=== PATIENT | female | born 1970 | race Caucasian/White ===

== ENCOUNTER 2018-09-30 14:30 | Emergency (ER) | payer BC, OTHER ==
[~2018-09-30] VITALS: Ht 152.4 cm; Wt 67.3 kg
[~2018-09-30 14:30] MED LIST: VITAMINS
[2018-09-30 14:47] VITALS: BP 161/96; PULSE 76; RESP 18; Ht 152.4 cm; Wt 67.3 kg
--- NOTE | 2018-09-30 16:47 | ERD ---
ER Documentation Chief Complaint Chief Complaint head feels heavy, body feels weak since last night, denies any pain HPI 48-year-old female past medical history of small kidney on the left side presents for feeling of heaviness in her head and body weakness x2 days. Patient states that she does not have pain however she feels a heaviness in her head. She states that she has been working a lot and has had increased stress due to her being on dialysis. She is not getting enough sleep. She denies fevers or chills. Denies chest pain or shortness of breath. Denies nausea, vomiting, diarrhea. Denies abdominal pain. Patient states that she is eating okay. No other modifying factors noted. No treatments tried at home. ROS All systems reviewed and are negative except as per history of present illness. Medications Home Meds Reported Medications [Vitamins] No Conflict Check 02/19/11 Allergies Allergies: Coded Allergies: No Known Drug Allergies (Verified Allergy, 02/19/11) PMhx/Soc History of Surgery: No Anesthesia Reaction: No Hx Neurological Disorder: No Hx Respiratory Disorders: No Hx Cardiac Disorders: No Hx Psychiatric Problems: No Hx Miscellaneous Medical Probl: No Hx Alcohol Use: No Hx Substance Use: No Hx Tobacco Use: No Smoking Status: Never smoker Physical Exam Vitals Vital Signs Date Temp Pulse Resp B/P (MAP) Pulse Ox O2 O2 Flow FiO2 Time Delivery Rate 09/30/18 98.4 76 18 161/96 100 14:47 (117) Physical Exam Const: No acute distress Head: Atraumatic Eyes: Normal Conjunctiva ENT: Normal External Ears, Nose and Mouth. Neck: Full range of motion. No meningismus. Resp: Clear to auscultation bilaterally Cardio: Regular rate and rhythm, no murmurs, peripheral pulses intact Abd: Soft, non tender, non distended. Normal bowel sounds Skin: No petechiae or rashes Back: No midline or flank tenderness Ext: No cyanosis, or edema, 5 out of 5 muscle strength bilateral upper and lower extremities Neur: Awake and alert, bilateral upper lower extremity sensation intact Psych: Normal Mood and Affect Result Diagram: 09/30/18 1527 09/30/18 1527 Results 24 hrs Laboratory Tests Test 09/30/18 15:27 White Blood Count 7.0 10^3/ul Red Blood Count 4.19 10^6/ul Hemoglobin 13.1 g/dl Hematocrit 40.5 % Mean Corpuscular Volume 96.7 fl Mean Corpuscular Hemoglobin 31.3 pg Mean Corpuscular Hemoglobin Concent 32.3 g/dl Red Cell Distribution Width 13.2 % Platelet Count 335 10^3/UL Mean Platelet Volume 8.8 fl Immature Granulocytes % 0.300 % Neutrophils % 54.2 % Lymphocytes % 33.7 % Monocytes % 6.8 % Eosinophils % 4.1 % Basophils % 0.9 % Nucleated Red Blood Cells % 0.0 /100WBC Immature Granulocytes # 0.020 10^3/ul Neutrophils # 3.8 10^3/ul Lymphocytes # 2.4 10^3/ul Monocytes # 0.5 10^3/ul Eosinophils # 0.3 10^3/ul Basophils # 0.1 10^3/ul Nucleated Red Blood Cells # 0.0 10^3/ul Sodium Level 143 mmol/L Potassium Level 4.2 mmol/L Chloride Level 113 mmol/L Carbon Dioxide Level 23 mmol/L Anion Gap 7 Blood Urea Nitrogen 32 mg/dl Creatinine 1.81 mg/dl Est Glomerular Filtrat Rate mL/min 30 mL/min Glucose Level 95 mg/dl Calcium Level 9.2 mg/dl Total Bilirubin 0.3 mg/dl Direct Bilirubin 0.00 mg/dl Indirect Bilirubin 0.3 mg/dl Aspartate Amino Transf (AST/SGOT) 27 IU/L Alanine Aminotransferase (ALT/SGPT) 22 IU/L Alkaline Phosphatase 118 IU/L Total Protein 7.1 g/dl Albumin 4.0 g/dl Globulin 3.10 g/dl Albumin/Globulin Ratio 1.29 Procedures/MDM Medical Decision Makin-year-old female presents for fatigue Differential diagnosis includes but not limited to electrolyte disorder, renal failure, sepsis, pneumonia Patient appeared well on physical exam. Patient was neurovascularly intact ED course: CBC: no e/o of systemic infection or severe anemia CMP: no e/o severe acidosis, alkalosis, diabetic ketoacidosis, liver disease, creatinine 1.8 Patient does have a history of a small kidney on the left side which could be the reason why she had elevated creatinine. Patient was advised that she will need to follow with her primary care physician closely for for repeat renal function testing Patient appeared well and felt appropriate for outpatient management Patient advised to follow up with PCP in 1-2 days. Patient advised to return to ED for new or worsening symptoms. Patient stable on discharge from the ED. Disclaimer: Inadvertent spelling and grammatical errors are likely due to EHR/dictation software use and do not reflect on the overall quality of patient care. Also, please note that the electronic time recorded on this note does not necessarily reflect the actual time of the patient encounter. Departure Diagnosis: Primary Impression: Fatigue Fatigue type: unspecified Qualified Codes: R53.83 - Other fatigue Condition: Fair Patient Instructions: Weakness, Unk Cause Referrals: [facility] YOU HAVE RECEIVED A MEDICAL SCREENING EXAM AND THE RESULTS INDICATE THAT YOU DO NOT HAVE A CONDITION THAT REQUIRES URGENT TREATMENT IN THE EMERGENCY DEPARTMENT. FURTHER EVALUATION AND TREATMENT OF YOUR CONDITION CAN WAIT UNTIL YOU ARE SEEN IN YOUR DOCTORS OFFICE WITHIN THE NEXT 1-2 DAYS. IT IS YOUR RESPONSIBILITY TO MAKE AN APPOINTMENT FOR FOLOW-UP CARE. IF YOU HAVE A PRIMARY DOCTOR --you should call your primary doctor and schedule an appointment IF YOU DO NOT HAVE A PRIMARY DOCTOR YOU CAN CALL OUR PHYSICIAN REFERRAL HOTLINE AT IF YOU CAN NOT AFFORD TO SEE A PHYSICIAN YOU CAN CHOSE FROM THE FOLLOWING [facility] [address] [facility]. [facility] [address] [facility]. [facility] [address] [facility] [facility] [address] [facility]. [facility] [address] [facility] [facility]. [address] Additional Instructions: Llame al doctor MAANA y lacy aliyah MARY PARA DENTRO DE 1-2 PAPPAS.Dgale a la secretaria que nosotros le instruimos hacer esta mary.Avise o llame si warren condicin se empeora antes de la mary. Regresa aqui si peor o no mejor. MIKE MABRY DO Sep 30, 2018 16:47
== END 2018-09-30 16:50 | disposition home or self-care (01) ==
LOC: FTE 14:30
DX: R53.83 Other fatigue (principal)
CPT/HCPCS: 80053; 85025; 99283

== ENCOUNTER 2019-02-09 18:48 | Emergency (ER) | payer BC ==
[~2019-02-09] VITALS: Ht 170.2 cm; Wt 85.0 kg
[2019-02-09 18:49] VITALS: Ht 170.2 cm; Wt 85.0 kg
[2019-02-09] MEDS ORDERED: DIPHENHYDRAMINE 50 MG INJ IV STA (18:58)
[2019-02-09] MEDS ORDERED: SOD CHLORIDE 0.9% 500 ML IV STA (18:58)
[2019-02-09] MEDS ORDERED: METOCLOPRAMIDE 10 MG INJ IV STA (18:58)
[2019-02-09] MEDS ORDERED: KETOROLAC 30 MG INJ IV STA (18:58)
[2019-02-09] MEDS ORDERED: ACETAMINOPHEN 325 MG TAB PO STA (18:58)
[2019-02-09 21:25] VITALS: BP 124/81; PULSE 70; RESP 17
== END 2019-02-09 21:40 | disposition home or self-care (01) ==
LOC: E/R 18:48
DX: R51 Headache (principal)
CPT/HCPCS: 96374; 96375; 99284; J1200; J1885; J2765; J7040